=== PATIENT | male | born 1990 | race Caucasian/White ===

== ENCOUNTER 2017-02-08 20:39 | Emergency (ER) | payer MEDICAID ==
[~2017-02-08] VITALS: Ht 170.2 cm; Wt 70.0 kg
[2017-02-08] MEDS ORDERED: SODIUM CHLORIDE 0.9% 1,000ML IVBOLUS ONE (21:00)
[2017-02-08 21:18] LABS: HEMATOCRIT 54.2 % (39.2-51.8); HEMOGLOBIN 17.9 g/dL (13.7-18.0); WHITE BLOOD COUNT 10.4 x10^3/uL (3.4-10)
[2017-02-08 21:24] LABS: ASPARTATE AMINO TRANSFERASE 27 U/L (15-37); BLOOD UREA NITROGEN 23 mg/dL (7-18)
[2017-02-08 21:28] LABS: ACETAMINOPHEN < 2 mcg/mL (10-30)
[2017-02-09 01:07] VITALS: BP 130/90
== END 2017-02-09 01:12 | disposition home or self-care (01) ==
LOC: ED 22:24
DX: F32.9 Major depressive disorder, single episode, unspecified (principal); Z88.0 Allergy status to penicillin; F12.10 Cannabis abuse, uncomplicated; F17.200 Nicotine dependence, unspecified, uncomplicated
CPT/HCPCS: 36415; 80053; 80307; 80329; 82962; 83735; 85025; 96360; 99284; J7030; G0480

== ENCOUNTER 2017-03-16 16:15 | Emergency (ER) | payer MEDICAID ==
[~2017-03-16] VITALS: Ht 167.6 cm; Wt 62.0 kg
[2017-03-16 16:17] VITALS: BP 113/70
[2017-03-16] MEDS ORDERED: LIDOCAINE 1%, 20ML SQ ONE (16:30)
[2017-03-16] MEDS ORDERED: CEPHALEXIN 500 MG CAPSULE PO ONE (16:30)
[2017-03-16] MEDS ORDERED: LIDOCAINE 1%, 20ML ONE (17:09)
[2017-03-16] MEDS ORDERED: CEPHALEXIN 500 MG CAPSULE ONE (17:09)
== END 2017-03-16 17:54 | disposition home or self-care (01) ==
LOC: ED 17:45
DX: L03.032 Cellulitis of left toe (principal); F43.10 Post-traumatic stress disorder, unspecified
CPT/HCPCS: 99283

== ENCOUNTER 2017-07-21 11:39 | Observation (INO) | payer MEDICAID ==
[~2017-07-21] VITALS: Ht 162.6 cm; Wt 54.3 kg
[2017-07-21 12:26] LABS: BASOPHILS # (AUTO) 0.02 x10^3/uL (0-0.1); BASOPHILS % (AUTO) 0 % (0-1); EOSINOPHILS # (AUTO) 0.07 x10^3/uL (0-0.4); EOSINOPHILS % (AUTO) 1 % (1-7); LYMPHOCYTES # (AUTO) 1.85 x10^3/uL (1-3.4); LYMPHOCYTES % (AUTO) 20 % (22-44); MD NO; MEAN CORPUSCULAR HEMOGLOBIN 29.8 pg (27.5-34.5); MEAN CORPUSCULAR HGB CONC 33.4 g/dL (33.2-36.2); MEAN CORPUSCULAR VOLUME 89.3 fL (81-97); MEAN PLATELET VOLUME 8.6 fL (7.4-10.4); MONOCYTES # (AUTO) 0.67 x10^3/uL (0.2-0.8); MONOCYTES % (AUTO) 7 % (2-9); NEUTROPHILS # (AUTO) 6.82 x10^3/uL (1.8-6.8); NEUTROPHILS % (AUTO) 72 % (42-75); PLATELET COUNT 241 x10^3/uL (130-400); RED BLOOD COUNT 4.72 x10^6/uL (4.38-5.82); RED CELL DISTRIBUTION WIDTH 13.4 % (9.4-14.8)
[2017-07-21 12:38] LABS: ALANINE AMINOTRANSFERASE 26 U/L (12-78); ALBUMIN 4.6 g/dL (3.4-5.0); ANION GAP 8 mmol/L (5-15); CALCIUM 9.2 mg/dL (8.5-10.1); CHLORIDE 101 mmol/L (98-107); CREATININE 0.95 mg/dL (0.7-1.3); SALICYLATE LEVEL 2.8 mg/dL (2.8-20.0)
[2017-07-21 12:40] LABS: ALKALINE PHOSPHATASE 103 U/L (45-117); BILIRUBIN,TOTAL 0.4 mg/dL (0.2-1.0); TOTAL PROTEIN 8.3 g/dL (6.4-8.2)
[2017-07-21 12:41] LABS: ACETAMINOPHEN < 2 mcg/mL (10-30)
[2017-07-21 13:40] LABS: AMPHETAMINE SCREEN, URINE Positive (Negative); BARBITURATE SCREEN, URINE Negative (Negative); BENZODIAZEPINE SCREEN, URINE Negative (Negative); CANNABINOID SCREEN, URINE Positive (Negative); COCAINE SCREEN, URINE Negative (Negative); METHADONE SCREEN, URINE Negative (Negative); OPIATE SCREEN, URINE Negative (Negative)
[2017-07-21] MEDS ORDERED: ACETAMINOPHEN 325 MG TABLET PO PRN (17:30)
[2017-07-21] MEDS ORDERED: PLEASE ENTER HEIGHT AND WEIGHT MC SCH (17:30)
[2017-07-21] MEDS ORDERED: ALBUTEROL SULFATE 2.5MG/0.5ML NPPB PRN (17:30)
[2017-07-21 21:03] VITALS: BP 90/48
[2017-07-22 07:25] LABS: BASOPHILS # (AUTO) 0.04 x10^3/uL (0-0.1); BASOPHILS % (AUTO) 1 % (0-1); EOSINOPHILS # (AUTO) 0.09 x10^3/uL (0-0.4); EOSINOPHILS % (AUTO) 2 % (1-7); LYMPHOCYTES # (AUTO) 1.62 x10^3/uL (1-3.4); LYMPHOCYTES % (AUTO) 32 % (22-44); MD NO; MEAN CORPUSCULAR HEMOGLOBIN 29.6 pg (27.5-34.5); MEAN CORPUSCULAR HGB CONC 33.3 g/dL (33.2-36.2); MEAN CORPUSCULAR VOLUME 88.9 fL (81-97); MEAN PLATELET VOLUME 8.2 fL (7.4-10.4); MONOCYTES # (AUTO) 0.39 x10^3/uL (0.2-0.8); MONOCYTES % (AUTO) 8 % (2-9); NEUTROPHILS # (AUTO) 2.97 x10^3/uL (1.8-6.8); NEUTROPHILS % (AUTO) 58 % (42-75); PLATELET COUNT 201 x10^3/uL (130-400); RED BLOOD COUNT 4.42 x10^6/uL (4.38-5.82)
[2017-07-22 07:37] LABS: ALANINE AMINOTRANSFERASE 23 U/L (12-78); ALBUMIN 3.5 g/dL (3.4-5.0); ANION GAP 6 mmol/L (5-15); CALCIUM 8.3 mg/dL (8.5-10.1); CHLORIDE 108 mmol/L (98-107); CREATININE 0.77 mg/dL (0.7-1.3)
[2017-07-22 07:39] LABS: ALKALINE PHOSPHATASE 76 U/L (45-117); BILIRUBIN,TOTAL 0.4 mg/dL (0.2-1.0); TOTAL PROTEIN 6.5 g/dL (6.4-8.2)
[2017-07-22] MEDS: POTASSIUM CHLORIDE 20 MEQ TAB.ER.PRT PO SCH ×2 (08:00→17:00)
[2017-07-22 08:09] VITALS: BP 100/52
[2017-07-22] MEDS: LURASIDONE 20 MG TABLET PO SCH (08:29)
[2017-07-22] MEDS: ARIPIPRAZOLE 10 MG TABLET PO SCH (08:29)
[2017-07-22 19:36] VITALS: BP 93/61
[2017-07-23 08:19] VITALS: BP 106/54
[2017-07-23] MEDS: ARIPIPRAZOLE 10 MG TABLET PO SCH (08:21)
[2017-07-23] MEDS: LURASIDONE 20 MG TABLET PO SCH (08:21)
[2017-07-23] MEDS ORDERED: LURA20TA PO (15:34)
[2017-07-23] MEDS ORDERED: ARIP10TA33 PO (15:34)
== END 2017-07-23 15:20 ==
LOC: ED 13:14 → EDIP 16:48 → 2N 20:51
PROVIDERS: ADMIT Internal Medicine Pulmonary Disease; ATTEND Internal Medicine Pulmonary Disease
DX: R45.851 Suicidal ideations (principal); R44.0 Auditory hallucinations; R44.1 Visual hallucinations; F32.9 Major depressive disorder, single episode, unspecified; F20.9 Schizophrenia, unspecified; F12.929 Cannabis use, unspecified with intoxication, unspecified; F15.129 Other stimulant abuse with intoxication, unspecified; E16.2 Hypoglycemia, unspecified; E87.6 Hypokalemia; E87.1 Hypo-osmolality and hyponatremia; Z87.01 Personal history of pneumonia (recurrent); Z91.14 Patient's other noncompliance with medication regimen; Z91.19 Patient's noncompliance with other medical treatment and regimen
CPT/HCPCS: 36415; 80053; 80307; 80329; 85025; 99285; G0378; G0480

== ENCOUNTER 2017-08-05 04:58 | Emergency (ER) | payer MEDICAID ==
[~2017-08-05] VITALS: Ht 167.6 cm; Wt 55.0 kg
[~2017-08-05 04:58] MED LIST: ARIP10TA33 PO; LURA20TA PO
[2017-08-05 05:01] VITALS: BP 134/82
[2017-08-05] MEDS ORDERED: ACETAMINOPHEN 325 MG TABLET PO ONE (05:30)
== END 2017-08-05 06:11 | disposition home or self-care (01) ==
LOC: ED 05:55
DX: M25.561 Pain in right knee (principal); M79.672 Pain in left foot; Z59.0 Homelessness; T69.029A Immersion foot, unspecified foot, initial encounter
CPT/HCPCS: 99281

== ENCOUNTER 2018-05-15 21:01 | Emergency (ER) | payer MEDICAID, OTHER ==
[~2018-05-15] VITALS: Ht 167.6 cm; Wt 62.2 kg
[2018-05-15 21:02] VITALS: BP 142/91
== END 2018-05-15 21:39 | disposition home or self-care (01) ==
LOC: ED 21:33
DX: M79.672 Pain in left foot (principal); M79.671 Pain in right foot; F17.200 Nicotine dependence, unspecified, uncomplicated
CPT/HCPCS: 99282

== ENCOUNTER 2019-05-12 15:36 | Emergency (ER) | payer MEDICAID ==
[~2019-05-12] VITALS: Ht 167.6 cm; Wt 60.8 kg
[2019-05-12 16:26] LABS: BASOPHILS % (AUTO) 1 % (0-1); EOSINOPHILS # (AUTO) 0.23 x10^3/uL (0-0.4); EOSINOPHILS % (AUTO) 3 % (1-7); LYMPHOCYTES # (AUTO) 2.08 x10^3/uL (1-3.4); LYMPHOCYTES % (AUTO) 26 % (22-44); MD NO; MEAN CORPUSCULAR HEMOGLOBIN 29.8 pg (27.5-34.5); MEAN CORPUSCULAR HGB CONC 32.4 g/dL (33.2-36.2); MEAN CORPUSCULAR VOLUME 91.9 fL (81-97); MEAN PLATELET VOLUME 8.3 fL (7.4-10.4); MONOCYTES # (AUTO) 0.71 x10^3/uL (0.2-0.8); MONOCYTES % (AUTO) 9 % (2-9); NEUTROPHILS # (AUTO) 4.97 x10^3/uL (1.8-6.8); NEUTROPHILS % (AUTO) 61 % (42-75); PLATELET COUNT 313 x10^3/uL (130-400); RED BLOOD COUNT 4.41 x10^6/uL (4.38-5.82); RED CELL DISTRIBUTION WIDTH 13.3 % (9.4-14.8)
[2019-05-12 16:34] LABS: ALANINE AMINOTRANSFERASE 29 U/L (12-78); ALBUMIN 3.7 g/dL (3.4-5.0); ANION GAP 5 mmol/L (5-15); CALCIUM 9.2 mg/dL (8.5-10.1); CHLORIDE 108 mmol/L (98-107)
[2019-05-12 16:37] LABS: ALKALINE PHOSPHATASE 108 U/L (45-117); BILIRUBIN,TOTAL 0.3 mg/dL (0.2-1.0); CREATININE 0.87 mg/dL (0.7-1.3); TOTAL PROTEIN 7.6 g/dL (6.4-8.2)
[2019-05-12 17:19] VITALS: BP 132/80
[2019-05-12 17:24] LABS: CULTURE INDICATED? NO; MICROSCOPIC AUTO
--- NOTE | 2019-05-12 18:18 | NUR ---
PT REQUIRED SECURITY TO ASSIST Janneth POASDAS
== END 2019-05-12 19:01 | disposition home or self-care (01) ==
LOC: ED 18:55
DX: K59.00 Constipation, unspecified (principal); F17.200 Nicotine dependence, unspecified, uncomplicated
CPT/HCPCS: 36415; 74022; 80053; 81001; 83690; 85025; 99284

== ENCOUNTER 2019-10-12 19:46 | Emergency (ER) | payer MEDICAID, OTHER ==
[~2019-10-12] VITALS: Ht 167.6 cm; Wt 63.0 kg
[2019-10-12 19:52] VITALS: BP 129/83
== END 2019-10-12 20:35 | disposition home or self-care (01) ==
LOC: ED 20:03
DX: R05 Cough (principal); F15.20 Other stimulant dependence, uncomplicated; F17.200 Nicotine dependence, unspecified, uncomplicated; F28 Other psychotic disorder not due to a substance or known physiological condition; Z72.9 Problem related to lifestyle, unspecified
CPT/HCPCS: 99281

== ENCOUNTER 2020-01-22 15:54 | Inpatient (IN) | payer MEDICAID, OTHER ==
[~2020-01-22] VITALS: Ht 167.6 cm; Wt 54.5 kg
--- NOTE | 2020-01-22 16:11 | NUR ---
PT C/O SORES AND SCABS SCATTERED ACROSS HIS BODY. LEFT ARM WRAPPED IN A BANDANA AND HAIRTIES, REMOVED AT THIS TIME. LEFT ARM HAS DEPENDENT EDEMA FROM ELASTIC TIES. MULTIPLE WET, OPEN WOUNDS AND SCABS ON LEFT ARM. LEFT LOWER LEG NOTED TO BE REDDENED, AND SWOLLEN TO SOCK LINE, ALSO HAS MULTIPLE SCABS. PT UNABLE TO SAY HOW LONG HIS WOUNDS HAVE BEEN THERE. ADMITS TO METHAMPHETAMINE USE YESTERDAY, DENIES ANY TODAY. DENIES ANY HISTORY BESIDES ASTHMA. CALL LIGHT IN REACH. PT INSTRUCTED ON DRESSING IN GOWN, GOWN LEFT AT BEDSIDE.
[2020-01-22] MEDS ORDERED: VANCOMYCIN PER PHARMACY MC ONE (16:30)
[2020-01-22 16:52] LABS: BASOPHILS # (AUTO) 0.05 x10^3/uL (0-0.1); BASOPHILS % (AUTO) 1 % (0-1); EOSINOPHILS # (AUTO) 0.12 x10^3/uL (0-0.4); EOSINOPHILS % (AUTO) 1 % (1-7); LYMPHOCYTES # (AUTO) 1.16 x10^3/uL (1-3.4); LYMPHOCYTES % (AUTO) 12 % (22-44); MD NO; MEAN PLATELET VOLUME 8.7 fL (7.4-10.4); MONOCYTES # (AUTO) 0.63 x10^3/uL (0.2-0.8); MONOCYTES % (AUTO) 6 % (2-9); NEUTROPHILS % (AUTO) 80 % (42-75); PLATELET COUNT 359 x10^3/uL (130-400); RED BLOOD COUNT 4.07 x10^6/uL (4.38-5.82); RED CELL DISTRIBUTION WIDTH 13.4 % (9.4-14.8)
[2020-01-22] MEDS ORDERED: SODIUM CHLORIDE 0.9% 1,000ML IVBOLUS ONE (17:00)
[2020-01-22] MEDS ORDERED: VANCOMYCIN 1,300 MG in SODIUM CHLORIDE 0.9% 250 ML IV ONE (17:00)
[2020-01-22 17:02] LABS: ANION GAP 10 mmol/L (5-15); CALCIUM 8.7 mg/dL (8.5-10.1); CHLORIDE 100 mmol/L (98-107); CREATININE 0.89 mg/dL (0.7-1.3)
--- NOTE | 2020-01-22 17:22 | NUR ---
IV FLUIDS INFUSING WITHOUT ISSUE. PT WATCHING TV, DENIES ANY NEEDS OR CONCERNS. ATB STARTED PER AUG. PT UPDATED ON PLAN OF CARE. CALL LIGHT IN REACH.
[2020-01-22] MEDS ORDERED: POTASSIUM CHLORIDE 20 MEQ TAB.ER.PRT PO ONE (17:30)
--- NOTE | 2020-01-22 19:10 | NUR ---
IV FLUIDS CONTINUE INFUSING, BUT SLUGGISHLY. PT REMINDED TO KEEP ARM STRAIGHT FOR BEST FLOW. PT DENIES ANY NEEDS OR CONCERNS AT THIS TIME. CALL LIGHT IN REACH.
[2020-01-22] MEDS ORDERED: POLYETHYLENE GLYCOL 17 GM PACKET PO PRN (20:00)
[2020-01-22] MEDS ORDERED: morphine SULFATE 10 MG/ML, 1ML IVPush PRN (20:00)
[2020-01-22] MEDS ORDERED: HALOPERIDOL 2 MG TABLET PO PRN (20:00)
[2020-01-22] MEDS ORDERED: MELATONIN 5 MG TABLET PO PRN (20:00)
[2020-01-22] MEDS ORDERED: ACETAMINOPHEN 325 MG TABLET PO PRN (20:00)
[2020-01-22] MEDS ORDERED: ONDANSETRON 2MG/ML, 2ML IVPush PRN (20:00)
[2020-01-22] MEDS ORDERED: BISACODYL 10 MG SUPP PR PRN (20:00)
[2020-01-22] MEDS ORDERED: HYDROcodone/APAP 5/325 TABLET PO PRN (20:00)
[2020-01-22] MEDS ORDERED: VANCOMYCIN PER PHARMACY MC PRN (20:00)
--- NOTE | 2020-01-22 20:00 | NUR ---
REPORT CALLED TO RECEIVING RN. PT UPDATED ON PLAN OF CARE. DENIES ANY NEEDS OR CONCERNS. CALL LIGHT IN REACH.
[2020-01-22] MEDS ORDERED: PHARMACOKINETIC MONITORING MC PRN (20:30)
[2020-01-22] MEDS: ENOXAPARIN 40 MG/0.4 ML SQ SCH (20:56)
[2020-01-22 20:58] VITALS: BP 111/68
[2020-01-22 21:13] LABS: AMPHETAMINE SCREEN, URINE Positive (Negative); BARBITURATE SCREEN, URINE Negative (Negative); BENZODIAZEPINE SCREEN, URINE Negative (Negative); CANNABINOID SCREEN, URINE Positive (Negative); COCAINE SCREEN, URINE Negative (Negative); METHADONE SCREEN, URINE Negative (Negative); OPIATE SCREEN, URINE Negative (Negative)
[2020-01-23 01:08] VITALS: BP 104/62
[2020-01-23] MEDS: VANCOMYCIN PMX 1GM/200ML 200 ML IV SCH ×2 (05:29→16:55)
[2020-01-23 05:40] LABS: ANION GAP 5 mmol/L (5-15); CALCIUM 8.8 mg/dL (8.5-10.1); CHLORIDE 108 mmol/L (98-107); CREATININE 0.72 mg/dL (0.7-1.3)
[2020-01-23 05:41] LABS: BASOPHILS # (AUTO) 0.03 x10^3/uL (0-0.1); BASOPHILS % (AUTO) 1 % (0-1); EOSINOPHILS # (AUTO) 0.19 x10^3/uL (0-0.4); EOSINOPHILS % (AUTO) 3 % (1-7); LYMPHOCYTES % (AUTO) 22 % (22-44); MD NO; MEAN CORPUSCULAR HEMOGLOBIN 28.6 pg (27.5-34.5); MEAN CORPUSCULAR HGB CONC 32.4 g/dL (33.2-36.2); MEAN PLATELET VOLUME 8.4 fL (7.4-10.4); MONOCYTES # (AUTO) 0.52 x10^3/uL (0.2-0.8); MONOCYTES % (AUTO) 9 % (2-9); NEUTROPHILS # (AUTO) 3.77 x10^3/uL (1.8-6.8); NEUTROPHILS % (AUTO) 65 % (42-75); PLATELET COUNT 342 x10^3/uL (130-400); RED BLOOD COUNT 4.04 x10^6/uL (4.38-5.82); RED CELL DISTRIBUTION WIDTH 13.5 % (9.4-14.8)
[2020-01-23 08:09] VITALS: BP 118/75
[2020-01-23] MEDS: SENNA/DOCUSATE TABLET PO SCH (09:30)
[2020-01-23 13:28] VITALS: BP 113/61
[2020-01-23 19:43] VITALS: BP 114/60
[2020-01-23] MEDS: MUPIROCIN OINT 2%, 22GM TP SCH (19:57)
[2020-01-23] MEDS: ENOXAPARIN 40 MG/0.4 ML SQ SCH (20:00)
[2020-01-24 02:51] VITALS: BP 102/62
[2020-01-24] MEDS: VANCOMYCIN PMX 1GM/200ML 200 ML IV SCH ×2 (05:18→17:37)
[2020-01-24] MEDS: MUPIROCIN OINT 2%, 22GM TP SCH ×2 (05:18→17:38)
[2020-01-24 05:37] LABS: BASOPHILS # (AUTO) 0.04 x10^3/uL (0-0.1); BASOPHILS % (AUTO) 1 % (0-1); EOSINOPHILS % (AUTO) 2 % (1-7); LYMPHOCYTES # (AUTO) 1.21 x10^3/uL (1-3.4); LYMPHOCYTES % (AUTO) 29 % (22-44); MD NO; MEAN CORPUSCULAR HEMOGLOBIN 28.7 pg (27.5-34.5); MEAN CORPUSCULAR HGB CONC 32.7 g/dL (33.2-36.2); MEAN PLATELET VOLUME 8.4 fL (7.4-10.4); MONOCYTES % (AUTO) 7 % (2-9); NEUTROPHILS # (AUTO) 2.53 x10^3/uL (1.8-6.8); NEUTROPHILS % (AUTO) 61 % (42-75); PLATELET COUNT 341 x10^3/uL (130-400); RED CELL DISTRIBUTION WIDTH 14.1 % (9.4-14.8)
[2020-01-24 05:39] LABS: ALBUMIN 2.7 g/dL (3.4-5.0); ANION GAP 4 mmol/L (5-15); CALCIUM 9.4 mg/dL (8.5-10.1); CHLORIDE 107 mmol/L (98-107)
[2020-01-24 05:43] LABS: ALANINE AMINOTRANSFERASE 21 U/L (12-78); ALKALINE PHOSPHATASE 72 U/L (45-117); BILIRUBIN,TOTAL < 0.1 mg/dL (0.2-1.0); CREATININE 0.61 mg/dL (0.7-1.3)
[2020-01-24 07:51] VITALS: BP 108/62
[2020-01-24] MEDS: SENNA/DOCUSATE TABLET PO SCH (10:00)
[2020-01-24 14:36] VITALS: BP 111/69
[2020-01-24 19:10] VITALS: BP 95/53
[2020-01-24] MEDS: ENOXAPARIN 40 MG/0.4 ML SQ SCH (22:23)
[2020-01-25 01:01] VITALS: BP 110/65
[2020-01-25] MEDS: VANCOMYCIN PMX 1GM/200ML 200 ML IV SCH ×3 (01:30→18:31)
[2020-01-25] MEDS: MUPIROCIN OINT 2%, 22GM TP SCH ×2 (06:30→18:31)
[2020-01-25 08:00] VITALS: BP 103/62
[2020-01-25] MEDS: SENNA/DOCUSATE TABLET PO SCH (09:00)
[2020-01-25 14:00] VITALS: BP 108/60
[2020-01-25] MEDS: DIPHENHYDRAMINE 25 MG CAPSULE PO PRN (19:48)
[2020-01-25] MEDS: ENOXAPARIN 40 MG/0.4 ML SQ SCH (19:48)
[2020-01-25 20:07] VITALS: BP 97/57
[2020-01-26] MEDS: VANCOMYCIN PMX 1GM/200ML 200 ML IV SCH ×2 (02:31→10:44)
[2020-01-26 02:38] VITALS: BP 98/63
[2020-01-26] MEDS: MUPIROCIN OINT 2%, 22GM TP SCH ×2 (06:09→18:18)
[2020-01-26 06:55] VITALS: BP 108/68
[2020-01-26] MEDS: SENNA/DOCUSATE TABLET PO SCH (08:15)
[2020-01-26 14:05] VITALS: BP 108/63
[2020-01-26] MEDS: ENOXAPARIN 40 MG/0.4 ML SQ SCH (20:00)
[2020-01-26 20:16] VITALS: BP 115/67
[2020-01-26] MEDS: CEPHALEXIN 500 MG CAPSULE PO SCH (20:47)
[2020-01-26] MEDS: DIPHENHYDRAMINE 25 MG CAPSULE PO PRN (20:47)
[2020-01-27 01:14] VITALS: BP 117/68
[2020-01-27] MEDS: CEPHALEXIN 500 MG CAPSULE PO SCH ×3 (02:39→13:25)
[2020-01-27] MEDS: MUPIROCIN OINT 2%, 22GM TP SCH (05:57)
[2020-01-27 07:42] VITALS: BP 104/64
[2020-01-27] MEDS: SENNA/DOCUSATE TABLET PO SCH (08:28)
[2020-01-27] MEDS ORDERED: CEPH-376 PO (10:22)
[2020-01-27 13:37] VITALS: BP 122/72
== END 2020-01-27 14:13 | disposition home or self-care (01) | DRG 603 ==
LOC: ED 18:08 → EDIP 19:19 → 4NE 20:19 → 4EST 01-24 09:24 → DCLOUNGE 01-27 14:10
PROVIDERS: ADMIT Internal Medicine; ATTEND Internal Medicine
DX: L03.116 Cellulitis of left lower limb (principal); L03.114 Cellulitis of left upper limb; F20.0 Paranoid schizophrenia; E87.1 Hypo-osmolality and hyponatremia; E44.1 Mild protein-calorie malnutrition; Z68.1 Body mass index [BMI] 19.9 or less, adult; F60.9 Personality disorder, unspecified; F32.9 Major depressive disorder, single episode, unspecified; F17.210 Nicotine dependence, cigarettes, uncomplicated; F15.10 Other stimulant abuse, uncomplicated; F12.90 Cannabis use, unspecified, uncomplicated; E87.6 Hypokalemia; E86.0 Dehydration; D50.9 Iron deficiency anemia, unspecified; J45.909 Unspecified asthma, uncomplicated; Z59.0 Homelessness; Z88.0 Allergy status to penicillin; Z79.899 Other long term (current) drug therapy; Z18.89 Other specified retained foreign body fragments
CPT/HCPCS: 36415; 80048; 80053; 80202; 80307; 82040; 83605; 83735; 84145; 85025; 87040; 87070; 87077; 87147; 87186; 87205; 96374; 99285; G0378; J1650; J3370; J7030; J7050; Q0163

== ENCOUNTER 2020-09-11 12:12 | Emergency (ER) | payer SELFPAY ==
[~2020-09-11] VITALS: Ht 167.6 cm; Wt 66.0 kg
[~2020-09-11 12:12] MED LIST changes: +CEPH-376 PO
[2020-09-11 12:24] VITALS: BP 106/61
--- NOTE | 2020-09-11 12:41 | NUR ---
BREAK RN: PT REPORTS DIARRHEA THIS MORNING. NEEDS NOTE FROM MD TO BE ABLE TO RETURN TO WORK AT THE [facility].
--- NOTE | 2020-09-11 13:30 | NUR ---
Patient given discharge instructions and they have confirmed that they understand the instructions. Patient ambulatory with steady gait.
== END 2020-09-11 13:31 | disposition home or self-care (01) ==
LOC: ED 13:01
DX: R19.7 Diarrhea, unspecified (principal)
CPT/HCPCS: 99281